=== PATIENT | male | born 1955 | race Caucasian/White ===

== ENCOUNTER → 2016-05-10 | Outpatient (CLI) | payer BC ==
[~2016-05-10] MED LIST: ASPIRIN 32325 MG/TAB PO; ATENOLOL25 MG PO; ZESTRIL20 MG PO
== END ==
LOC: COL.RAD 13:30
DX: R04.2 Hemoptysis (principal); I25.10 Atherosclerotic heart disease of native coronary artery without angina pectoris
CPT/HCPCS: Q9967

== ENCOUNTER → 2016-11-24 | Outpatient (CLI) | payer BC | LOC: COL.VAS 07:58 | DX: R39.198 Other difficulties with micturition (principal); I10 Essential (primary) hypertension ==

== ENCOUNTER → 2020-09-20 | Outpatient (CLI) | payer BC | LOC: COL.RAD 09:23 | DX: Z13.6 Encounter for screening for cardiovascular disorders (principal); Z87.891 Personal history of nicotine dependence ==

== ENCOUNTER → 2021-08-02 | Outpatient (CLI) | payer BC | LOC: COL.RAD 10:51 | DX: R42 Dizziness and giddiness (principal); R20.2 Paresthesia of skin; Z82.3 Family history of stroke | CPT/HCPCS: Q9967 ==